=== PATIENT | female | born 2005 | race Caucasian/White ===

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

== ENCOUNTER 2025-04-18 13:45 | Outpatient (CLI) | payer BC, OTHER, SELFPAY ==
--- OUTSIDE RECORDS SUMMARY | 2025-04-21 13:47 | XMS_ITS | Data Portability ---
Author Organization [facility] [place] [facility] Address [address] [place] [address] Assessment Encounter Date Assessment Date Assessment LastModified by Organization Details LastModified Time 11/24/2023 11/24/2023 SURGERY DATE: 11/24/2023 PREOPERATIVE DIAGNOSIS: Biliary dyskinesia. POSTOPERATIVE DIAGNOSIS: Biliary dyskinesia. PROCEDURE: Laparoscopic cholecystectomy , TAP block. ESTIMATED BLOOD LOSS: Scant. FINDINGS: The gallbladder had normal biliary anatomy, was not inflamed. OPERATIVE NOTE: General anesthesia was induced. Abdomen was prepped and draped sterilely. Time-out done and antibiotics given. An 8 mm incision was made at the level of the umbilicus and Veress needle placed. Abdomen insufflated. Three 5 mm trocars placed in the subcostal position. TAP block done. The gallbladder was grasped and reflected cephalad. Peritoneal tissues were carefully freed off the cystic duct, cystic artery and neck of the gallbladder. Critical view obtained. Cystic duct and cystic artery controlled with clips and divided. The gallbladder was swept off the gallbladder fossa with hook cautery. This was placed in a plastic sac and removed from the abdomen. The right upper quadrant was thoroughly lavaged. The 0 Vicryl suture used to close the fascial defect, 4-0 Monocryl used to close the skin. Dermabond dressing applied. [email or web address] Not available 11/25/2023 03:21:33 Plan of Treatment Reminders Order Date Submit Date Provider Last Modified By Organization Details Last Modified Time Details Appointments None recorded. Lab None recorded. Referral None recorded. Procedures None recorded. Surgeries None recorded. Imaging NM, hepatobilia ry scan, w/ CCK 2023 024 [email or web address] [facility] [place], [address] [place], [address], 09:02:00 Medication Orders None recorded. Patient TargetsNo targets recorded. Patient Instructions Encounter Date Encounter Id Patient Instructions Last Modified By Organization Details Last Modified Time 10/20/2023 [id number] medical record request* [email or web address] Not available 10/24/2023 13:49:24 Patient was advised that the results of all diagnostic studies will be discussed in detail at the time of follow up. If results are urgent the results will be called to the patient. If follow-up appointment is missed it is the patients responsibility to reschedule. Patient is advised that if new or worsening symptoms occur they should call the clinic and or precede to the closest emergency room. [email or web address] Not available 10/19/2023 13:29:47 Reason for Referral None Reported. Results Created Date Observation Date Name Description Value Unit Range Abnormal Flag Note LastModifiedBy Organization Detail LastModifiedTime 09/27/19 24 09/27/2023 B12/F OLIC ACID PANEL folic acid 6.6 NG/mL 4.6-34 .8 normal Not Available [facility] [address] [place] [address], [address], 09/27/2023 14:20:38 09/27/19 24 09/27/2023 B12/F OLIC ACID PANEL vitamin B12 209 pg/mL 232-12 45 low Not Available [facility] [address] [place] [address], [address], 09/27/2023 14:20:38 09/27/19 24 09/27/2023 VITAM IN D 25-OH vitamin D 25-oh, total 30 NG/mL >=30 NG/mL normal Not Available [facility] [place], [address], 09/27/2023 14:20:40 09/27/19 24 09/27/2023 COMPL ETE BLOOD COUNT white blood cells 6.4 10*3/ uL 3.8-10 .8 normal Not Available [facility] [address] [place] [address], [address], 09/27/2023 14:31:22 09/27/19 24 09/27/2023 COMPL ETE BLOOD COUNT red blood cells 4.51 10*6/ uL 3.80-5 .20 normal Not Available [facility] [address] [place] [address], [address], 09/27/2023 14:31:22 09/27/19 24 09/27/2023 COMPL ETE BLOOD COUNT hemoglobin 13.6 g/dL 12.0-1 6.0 normal Not Available [facility] [address] [place] [address], [address], 09/27/2023 14:31:22 09/27/19 24 09/27/2023 COMPL ETE BLOOD COUNT hematocrit 41.4 % 35.0-4 7.0 normal Not Available [facility] [address] [place] [address], [address], 09/27/2023 14:31:22 09/27/19 24 09/27/2023 COMPL ETE BLOOD COUNT MCV 92 fL 80-100 normal Not Available [facility] [address] [place] [address], [address], 09/27/2023 14:31:22 09/27/19 24 09/27/2023 COMPL ETE BLOOD COUNT MCH 30 pg 26-35 normal Not Available [facility] [address] [place] [address], [address], 09/27/2023 14:31:22 09/27/19 24 09/27/2023 COMPL ETE BLOOD COUNT MCHC 33 g/dL 32-36 normal Not Available [facility] [address] [place] [address], [address], 09/27/2023 14:31:22 09/27/19 24 09/27/2023 COMPL ETE BLOOD COUNT RDW 12.9 % 11.0-1 5.0 normal Not Available [facility] [address] [place] [address], [address], 09/27/2023 14:31:22 09/27/19 24 09/27/2023 COMPL ETE BLOOD COUNT MPV 9.6 fL 6.2-10 .5 normal Not Available [facility] [address] [place] [address], [address], 09/27/2023 14:31:22 09/27/19 24 09/27/2023 COMPL ETE BLOOD COUNT platelet count 277 10*3/ uL 150-40 0 normal Not Available [facility] [address] [place] [address], [address], 09/27/2023 14:31:22 09/27/19 24 09/27/2023 COMPL ETE BLOOD COUNT neutrophil,a bsolute 3.0 10*3/ uL 1.6-8. 4 normal Not Available [facility] [address] [place] [address], [address], 09/27/2023 14:31:22 09/27/19 24 09/27/2023 COMPL ETE BLOOD COUNT lymphocyte,a bsolute 2.3 10*3/ uL 0.4-5. 1 normal Not Available [facility] [address] [place] [address], [address], 09/27/2023 14:31:22 09/27/19 24 09/27/2023 COMPL ETE BLOOD COUNT monocyte,abs olute 0.5 10*3/ uL 0.0-1. 2 normal Not Available [facility] [address] [place] [address], [address], 09/27/2023 14:31:22 09/27/19 24 09/27/2023 COMPL ETE BLOOD COUNT eosinophil,a bsolute 0.5 10*3/ uL 0.0-0. 8 normal Not Available [facility] [address] [place] [address], [address], 09/27/2023 14:31:22 09/27/19 24 09/27/2023 COMPL ETE BLOOD COUNT basophil,abs olute 0.1 10*3/ uL 0.0-0. 3 normal Not Available [facility] [address] [place] [address], [address], 09/27/2023 14:31:22 09/27/19 24 09/27/2023 COMPL ETE BLOOD COUNT % neutrophils 47.2 % 42.0-7 8.0 normal Not Available [facility] [address] [place] [address], [address], 09/27/2023 14:31:22 09/27/19 24 09/27/2023 COMPL ETE BLOOD COUNT % lymphocytes 36.3 % 11.0-4 7.0 normal Not Available [facility] [address] [place] [address], [address], 09/27/2023 14:31:22 09/27/19 24 09/27/2023 COMPL ETE BLOOD COUNT % monocytes 8.2 % 0.0-11 .0 normal Not Available [facility] [address] [place] [address], [address], 09/27/2023 14:31:22 09/27/19 24 09/27/2023 COMPL ETE BLOOD COUNT % eosinophils 7.4 % 0.0-7. 0 high Not Available [facility] [address] [place] [address], [address], 09/27/2023 14:31:22 09/27/19 24 09/27/2023 COMPL ETE BLOOD COUNT % basophils 0.9 % 0.0-3. 0 normal Not Available [facility] [address] [place] [address], [address], 09/27/2023 14:31:22 09/27/19 24 09/27/2023 COMPL ETE BLOOD COUNT nucleated red cells 0.0 % 0.0-0. 9 normal Not Available [facility] [address] [place] [address], [address], 09/27/2023 14:31:22 09/27/19 24 09/27/2023 COMPL ETE BLOOD COUNT nucleated RBCs, absolute 0.00 10*3/ uL not estab. normal Not Available [facility] [address] [place] [address], [address], 09/27/2023 14:31:22 09/27/19 24 09/27/2023 LIPAS E lipase 21 U/L 13-60 normal Not Available [facility] [address] [place] [address], [address], 09/27/2023 14:42:02 09/27/19 24 09/27/2023 MAYO C PANEL IgA 97 mg/dL 70-400 normal Not Available [facility] [address] [place] [address], [address], 09/29/2023 14:57:29 09/27/19 24 09/29/2023 MAYO C PANEL gliadin Ab IgA <1.0 U/mL normal Value Inter preta tion ----- ----- ----- ---- <15.0 Antib juarez not detec harrison > or = 15.0 Antib juarez detec harrison Not Available [facility] [address] [place] [address], [address], 09/29/2023 14:57:29 09/27/19 24 09/29/2023 MAYO C PANEL gliadin Ab IgG <1.0 U/mL normal Value Inter preta tion ----- ----- ----- ---- <15.0 Antib juarez not detec harrison > or = 15.0 Antib juarez detec harrison Not Available [facility] [address] [place] [address], [address], 09/29/2023 14:57:29 09/27/19 24 09/29/2023 MAYO C PANEL ttg, IgA <1.0 U/mL normal Value Inter preta tion ----- ----- ----- ---- <15.0 Antib juarez not detec harrison > or = 15.0 Antib juarez detec harrison Not Available [facility] [address] [place] [address], [address], 09/29/2023 14:57:29 09/27/19 24 09/29/2023 MAYO C PANEL endomysial Ab, IgA NEGATI VE negati ve normal Not Available [facility] [address] [place] [address], [address], 09/29/2023 14:57:29 09/27/19 24 09/27/2023 COMP. METAB OLIC PANEL glucose 93 mg/dL 74-100 normal Not Available [facility] [address] [place] [address], [address], 09/27/2023 14:42:06 09/27/19 24 09/27/2023 COMP. METAB OLIC PANEL blood urea nitrogen 11 mg/dL 6-20 normal Not Available [facility] [address] [place] [address], [address], 09/27/2023 14:42:06 09/27/19 24 09/27/2023 COMP. METAB OLIC PANEL creatinine 0.70 mg/dL 0.50-0 .95 normal Not Available [address], [address], 09/27/2023 14:42:06 09/27/19 24 09/27/2023 COMP. METAB OLIC PANEL BUN/creatini ne ratio 16 (calc ) 10-20 normal Not Available [facility] [address] [place] [address], [address], 09/27/2023 14:42:06 09/27/19 24 09/27/2023 COMP. METAB OLIC PANEL sodium 138 mmol/ L 136-14 5 normal Not Available [facility] [address] [place] [address], [address], 09/27/2023 14:42:06 09/27/19 24 09/27/2023 COMP. METAB OLIC PANEL potassium 3.5 mmol/ L 3.4-5. 0 normal Not Available [facility] [address] [place] [address], [address], 09/27/2023 14:42:06 09/27/19 24 09/27/2023 COMP. METAB OLIC PANEL chloride 103 mmol/ L 98-107 normal Not Available [facility] [address] [place] [address], [address], 09/27/2023 14:42:06 09/27/19 24 09/27/2023 COMP. METAB OLIC PANEL carbon dioxide 24 mmol/ L 22-31 normal Not Available [facility] [address] [place] [address], [address], 09/27/2023 14:42:06 09/27/19 24 09/27/2023 COMP. METAB OLIC PANEL anion gap 11 (calc ) 7-25 normal Not Available [facility] [address] [place] [address], [address], 09/27/2023 14:42:06 09/27/19 24 09/27/2023 COMP. METAB OLIC PANEL calcium 9.0 mg/dL 8.6-10 .2 normal Not Available [facility] [address] [place] [address], [address], 09/27/2023 14:42:06 09/27/19 24 09/27/2023 COMP. METAB OLIC PANEL total protein 7.3 g/dL 6.0-8. 0 normal Not Available [facility] [address] [place] [address], [address], 09/27/2023 14:42:06 09/27/19 24 09/27/2023 COMP. METAB OLIC PANEL albumin 4.5 g/dL 3.5-5. 2 normal Not Available [facility] [address] [place] [address], [address], 09/27/2023 14:42:06 09/27/19 24 09/27/2023 COMP. METAB OLIC PANEL globulin 2.8 1.5-4. 5 normal Not Available [facility] [address] [place] [address], [address], 09/27/2023 14:42:06 09/27/19 24 09/27/2023 COMP. METAB OLIC PANEL albumin/glob ulin ratio 1.6 (calc ) 1.1-2. 5 normal Not Available [facility] [address] [place] [address], [address], 09/27/2023 14:42:06 09/27/19 24 09/27/2023 COMP. METAB OLIC PANEL bilirubin, total 0.4 mg/dL 0.1-1. 2 normal Not Available [facility] [address] [place] [address], [address], 09/27/2023 14:42:06 09/27/19 24 09/27/2023 COMP. METAB OLIC PANEL alkaline phosphatase 88 U/L 30-121 normal Not Available [facility] [address] [place] [address], [address], 09/27/2023 14:42:06 09/27/19 24 09/27/2023 COMP. METAB OLIC PANEL AST 18 U/L 0-32 normal Not Available [facility] [address] [place] [address], [address], 09/27/2023 14:42:06 09/27/19 24 09/27/2023 COMP. METAB OLIC PANEL ALT 10 U/L 0-33 normal Not Available [facility] [address] [place] [address], [address], 09/27/2023 14:42:06 09/27/19 24 09/27/2023 COMP. METAB OLIC PANEL GFR 128 >= 60 normal NOT E New calcu latio n for GFR (CKD- EPI 2020) is formu lated witho ut race adjus tment facto rs at the recom menda tion of the Joelle Garcia y Found atyassine and Gautam Martino ty of Nephr ology . This calcu latio n has not been valid ated in pregn ant women . For pedia tric patie nts refer to https ://brian tamayo.o rg/pr ofess ional s/KDO QI/gf r_cal culat orPed Not Available [facility] [address] [place], [address], 09/27/2023 14:42:06 09/27/19 24 09/27/2023 AMYLA SE amylase 46 U/L 28-100 normal Not Available [facility] [address] [place], [address], 09/27/2023 14:42:08 09/27/19 24 09/27/2023 TSH TSH 3.490 u[IU] /mL 0.270- 4.200 normal Not Available [facility] [address] [place], [address], 09/27/2023 14:45:24 09/27/19 24 09/29/2023 UREA BREAT H TEST urea breath test NOT DETECT ED not detect ed normal Antim icrob ials, lionel n pump inhib itors , and bismu th prepa ratio ns are known to suppr ess H. pylor i, and inges tion of these prior to H. pylor i diagn ostic testi ng may lead to false negat norberto resul ts. If clini ashly indic ated, the test may be repea harrison on a new speci men obtai ce two weeks after disco ntinu ing treat ment. Hesham er, a posit norberto resul t is still clini ashly valid . Not Available [facility] [address] [place], [address], 09/29/2023 10:15:35 09/27/19 24 10/05/2023 INFLA MMATO RY BOWEL DISEA SE DIFFE RENTI ATION sacch.cerevi siae Ab,IgG <20.0 U normal Refer ence Range : <=20 NEGAT NORBERTO 20.1- 29.9 EQUIV OCAL >=30 POSIT NORBERTO Antib odies to Sacch aromy cecilio cerev isiae are found in appro ximat fannie 75% of patie nts with Crohn 's disea se, 15% of patie nts with ulcer ative colit is, and 5% of the healt hy popul ation . High antib juarez titer s incre ase the likel ihood of disea se, espec ially Crohn 's disea se, and are assoc iated with more aggre ssive disea se. As the infla mmati on in Crohn 's disea se is focus ed at the gut mucos a, most patie nts have IgA antib odies to S cerev isiae and half of these also have IgG antib odies . A minor ity of patie nts have only IgG antib odies to S cerev isiae . Not Available [facility] [address] [facility], [place], [address], 10/05/2023 22:24:26 09/27/19 24 10/05/2023 INFLA MMATO RY BOWEL DISEA SE DIFFE RENTI ATION sacch.cerevi siae Ab,IgA <20.0 U normal Refer ence Range : <=20. 0 NEGAT NORBERTO 20.1- 24.9 EQUIV OCAL >=25. 0 POSIT NORBERTO Antib odies to Sacch aromy cecilio cerev isiae are found in appro ximat fannie 75% of patie nts with Crohn 's disea se, 15% of patie nts with ulcer ative colit is, and 5% of the healt hy popul ation . High antib juarez titer s incre ase the likel ihood of disea se, espec ially Crohn 's disea se, and are assoc iated with more aggre ssive disea se. As the infla mmati on in Crohn 's disea se is focus ed at the gut mucos a, most patie nts have IgA antib odies to S cerev isiae and half of these also have IgG antib odies . A minor ity of patie nts have only IgG antib odies to S cerev isiae . Not Available [facility] [address] [place], [address], 10/05/2023 22:24:26 09/27/19 24 10/05/2023 INFLA MMATO RY BOWEL DISEA SE DIFFE RENTI ATION anca screen NEGATI VE negati ve normal ANCA Scree n inclu umesh evalu ation for p-ANC A, c-ANC A and atypi kt p-ANC A. A posit norberto ANCA scree n refle xes to john and leila rn(s) , e.g., cytoari dee rn (c-AN CA), logan dee rn (p-AN CA), or atypi kt p-ANC A leila rn. c-ANC A and p-ANC A are obser zoey in vascu litis , where as atypi kt p-ANC A is obser zoey in IBD (Infl ammat ory Bowel Disea se). Atypi kt p-ANC A is detec harrison in about 55% to 80% of patie nts with ulcer ative colit is but only 5% to 25% of patie nts with Crohn 's disea se. Not Available [facility] [address] [place], [address], 10/05/2023 22:24:26 09/27/19 24 10/05/2023 INFLA MMATO RY BOWEL DISEA SE DIFFE RENTI ATION proteinase-3 Ab <1.0 ai <1.0 normal <1.0 AI No Antib juarez Detec harrison > or = 1.0 AI Antib juarez Detec harrison Autoa ntibo dies to prote inase -3 (NE-3 ) are accep harrison as bree cteri stic for granu lomat osis with polya ngiit is (GPA, Wegen er's) , and are detec table in 95% of the histo logic ally prove n cases . The cytop quinn dee rn, (c-AN CA), is based large ly on autoa ntibo dy to NE-3 which serve s as the prima ry antig en. These autoa ntibo dies are prese nt in activ e disea se. Not Available [facility] [address] [place], [address], 10/05/2023 22:24:26 09/27/19 24 10/05/2023 INFLA MMATO RY BOWEL DISEA SE DIFFE RENTI ATION myeloperoxid ase Ab <1.0 ai <1.0 normal <1.0 AI No Antib juarez Detec harrison > or = 1.0 AI Antib juarez Detec harrison Autoa ntibo dies to myelo perox idase (MPO) are commo nly assoc iated with the follo wing small -vess el vascu litid es: micro scopi c polya ngiit is, polya rteri tis nodos a, Churg -Stra uss syndr ome, necro tizin g and cresc entic glome rulon ephri tis and occas ional ly granu lomat osis with polya ngiit is (GPA, Wegen er's) . The perin kwan dee rn, (p-AN CA) is based large ly on autoa ntibo dy to myelo perox idase which serve s as the prima ry antig en. These autoa ntibo dies are prese nt in activ e disea se. Not Available [facility] [address] [place], [address], 10/05/2023 22:24:26 11/24/19 24 11/24/2023 SURGI KT surgical SEE BELOW normal Depar tment of Patho logy Surgi kt Patho logy Repor t NAME: KATIELUDA MarquisTAIWOCE PATH. :ST-2 70 Copy to: Diagn osis: Junior morton r, radha cyste ctomy : Chron ic radha cysti tis. SOURC E OF SPECI MEN: JUNIOR MORTON R, & NURIS NTS CLINI KT INFOR MATIO N: K 82.8 BILIA RY DYSKI NESIA Gross Descr iptio n: Recei zoey in forma rahel label ed with the patie nt's name and desig nated as gall bladd er and nuris nts is a radha cyste ctomy speci men (4.5 x 2.5 x 2 cm) which has a pink- martínez, adam h to rough ened surfa ce. No lymph node is ident ified in the cysti c duct regio n. The speci men has been previ ously incis ed and no perfo ratio n is ident ified . The cysti c duct is paten t. The gallb ladde r lumen conta ins no radha liths . The mucos a is dark pinki sh-re d, witho ut radha stero losis . The wall of the gallb ladde r measu res up to 0.2 cm in thick ness. Repre senta tive secti ons are submi tted in a singl e casse tte. JAB 11/23 01:14 PM Micro scopi c Descr iptio n: A micro scopi c exami natio n has been perfo rmed and the resul t(s) are as noted above . AZIZA BROWN M.D. Juana d Out Date: 11/27 10:35 Page 1 of 1 Not Available [facility] [address] [place], [address], 11/28/2023 10:36:08 10/30/19 24 10/26/2023 NM, hepat obili robert scan, w/ CCK No observ ation record ed. vdewes [facility] [address], [place], [address], 10/31/2023 09:31:47 10/31/19 24 10/16/2023 emerg ency dept. visit * No observ ation record ed. [email or web address] Not Available 2023 17:21:03 Result Notes None recorded. Problems Name Problem SNOMED Code Status Onset Date Resolution Date Notes Provider Name and Address Organization Details Recorded Time Asthma 077080583 Active 2022 JASS HILTON NT, DO [address] [place], [address], [facility] 3 14:08:52 Mixed anxiety and depressive disorder 662036078 Active 2022 JASS CASTILLO, DO [address] [place], [address], [facility] 3 14:09:40 Headache 34380305 Active 2022 JASS HILTON NT, DO [address] [place], [address], [facility] 3 14:16:00 Allergic rhinitis 32554501 Active 2022 JASS CASTILLO, DO [address] [place], [address], [facility] 3 10:01:57 Fatigue 18053386 Active 2023 JASS CASTILLO, DO [address] [place], [address], [facility] 4 10:34:02 Right upper quadrant pain 386033629 Active 2023 JASS CASTILLO, DO [address] [place], [address], [facility] 4 15:41:30 Biliary dyskinesia 309114564 Active 2023 JASS CASTILLO, DO [address] [place], [address], [facility] 4 16:28:21 Cholecystitis 00998614 Active 2023 JASSKAREEM CASTILLO, DO [address] [place], [address], [facility] 4 16:28:38 Musculoskeleta l pain 630326147 Active 2023 JIGAR PATTON JR, MD [address] [place], [address], [facility] 4 17:13:56 Problem Notes Documentation Provider Name and Address Organization Details Recorded Time General Surgeon Consult Note : [facility] [address] [address]TOD[address], Grace I (id #[id number], : 2005) [facility] GENERAL SURGERY [address] [place] [address] Date: 4RE: Jamaica Rivas, : 2005, PT ID #[id number] Payne DO / [facility], [facility], I would like to thank you for referring Jamaica Rivas to our practice for consultation and evaluation. I have enclosed a copy of the office evaluation for your records. Sincerely, Electronically Signed by: JIGAR PATTON JR, MDEnccovenant medical center Reason/DateTransition of Care Encounter Patient complains of pain RUQ and nausea. 10/31/2023 - 10:40AM - GENERAL SURGERY SB History of Present Illness10/31/2023I am seeing Ms. Rivas consultation request of Jass Ferris DO for evaluation of right upper quadrant pain. 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 For several months she has had right sided stitch sensation. 3 weeks ago it became severe right upper quadrant pain on that was constant. The only thing that made it better was when she stopped eating fatty foods. She only eats rice and oatmeal now. It was accompanied by nausea. There is no radiation of pain. She denies any blood in her stool, vomiting, constipation. She denies history of jaundice pancreatitis. Taking dicyclomine and omeprazole did not improve the symptoms. She never had abdominal surgery. HIDA scan shows 0% ejection fractionShe states CT scan abdomen [facility] normalIBD serology, celiac panel, H. pylori, amylase, lipase, CBC and CMP were all normal.She denies history of chest painReview of Systems Patient reportschange in appetite, abdominal pain, and nauseabut reports not vomiting blood. She reportsfatigue. She reports no fever and no significant weight gain. She reports no vision change. She reports no frequent nosebleeds. She reports no chest pain, no shortness of breath when walking, and no palpitations. She reports no shortness of breath and no coughing up blood. She reports no difficulty urinating and no hematuria. She reports no jaundice and no rashes. She reports no loss of consciousness and no seizures. She reports no depression. She reports no swollen glands and no excessive bleeding. ROS as noted in the HPIPhysical ExamConstitutional:General Appearance: healthy-appearing and well-nourished. Level of Distress: NAD. Ambulation: ambulating normally. Psychiatric:Mental Status: normal mood and affect and active and alert. Head:Head: normocephalic and atraumatic. Eyes:Lids and Conjunctivae: non-injected. EOM: EOMI. Sclerae: non-icteric. ENMT:Hearing: no hearing loss. Neck:Neck: FROM and trachea midline. Lymph Nodes: no cervical LAD or supraclavicular LAD. Thyroid: no enlargement. Lungs:Auscultation: breath sounds normal and good air movement. Cardiovascular:Heart Auscultation: RRR and no murmurs. Abdomen:Inspection and Palpation: no tenderness or masses and soft and non-distended. Musculoskeletal::Motor Strength and Tone: normal and normal tone. Extremities: no edema. Neurologic:Gait and Station: normal gait and station. Coordination and Cerebellum: no tremor. Skin:Inspection and palpation: no rash or jaundice. Back:Thoracolumbar Appearance: normal curvature.Procedure DocumentationNone recordedAssessment/Plan1. Biliary uqbthsecdiH40.8: Other specified diseases of gallbladder 2. Right upper quadrant pain-90% chance that laparoscopic cholecystectomy will resolve her symptoms. I explained is possible to proceed with upper endoscopy before surgery but she does not want to do this. 3% chance of severe complication which would include bile duct injury. In 10 days she should be able to return to moderate activities. Use 5 mm rtcyuwkN56.11: Right upper quadrant pain Return to Office JIGAR PATTON JR, MD for ESC-LC 30 at SURGERY SCHEDULE on 11/10/2023 at 08:00 AM JASS PAYNE DO for RECHECK at [facility] on 11/17/2023 at 01:00 PM JIGAR PATTON JR, MD for HOSPITAL FOLLOW-UP at GENERAL SURGERY SB on 11/23/2023 at 10:40 AM JASS PAYNE DO [facility] [place], [address], [facility] 11/02/2023 08:08:30 General Surgeon Consult Note : [facility] [address] [facility] [id number], Grace I (id #[id number], : 2005) [facility] GENERAL SURGERY [address] [place] [address] Date: 4RE: [place] Rivas, : 2005, PT ID #[id number] Payne DO / [facility], I would like to thank you for referring Jamaica Rivas to our practice for consultation and evaluation. I have enclosed a copy of the office evaluation for your records. Sincerely, Electronically Signed by: JIGAR PATTON JR, MDEncounter Reason/DateNone recorded 12/07/2023 - 02:00PM - GENERAL SURGERY [facility] History of Present Illness10/31/2023I am seeing Ms. Rivas consultation request of Jass Ferris DO for evaluation of right upper quadrant pain. 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 For several months she has had right sided stitch sensation. 3 weeks ago it became severe right upper quadrant pain on that was constant. The only thing that made it better was when she stopped eating fatty foods. She only eats rice and oatmeal now. It was accompanied by nausea. There is no radiation of pain. She denies any blood in her stool, vomiting, constipation. She denies history of jaundice pancreatitis. Taking dicyclomine and omeprazole did not improve the symptoms.She never had abdominal surgery. HIDA scan shows 0% ejection fractionCT scan abdomen pelvis with contrast 10/16/2023 showed hepatomegaly, hepatic steatosis, no biliary dilatation, unremarkable gallbladder, punctate nonobstructing right kidney stone with 7 mm hypodense lesion at dome of the liver felt to be benignUltrasound gallbladder showed no gallstones, no wall thickening, no pericholecystic fluid and no biliary dilatationIBD serology, celiac panel, H. pylori, urinalysis, amylase, lipase, CBC and CMP were all normal.She denies history of chest pain 12/07/2023 She underwent laparoscopic cholecystectomy 11/24/2023. Pathology showed cholecystitis. She states her preoperative symptoms have completely resolved. She had minimal pain after the surgery. She has excellent healing. Follow-up as needed.Review of SystemsROS as noted in the HPIPhysical ExamNone recordedProcedure DocumentationNone recordedAssessment/PlanNone recorded Return to Office Patient will return to the office as needed JASS PAYNE, DO [address] [place], [address], [facility] 12/09/2023 12:04:35 Procedures Surgical History Date Name Laterality Status Provider Name and Address Organization Details Recorded Time tonsillectomy completed Meli Arnold [facility] 05/12/2023 14:06:14 Ear Tube completed Angelina [facility] 10/31/2023 13:11:25 Imaging Results None recorded. Procedure Notes None recorded. Medical Equipment None Reported. Allergies No known drug allergies Medications Name Sig Start Date Stop Date Status Note LastModified by Organization Details LastModified Time Singulair 10 mg tablet Daily 05/12 completed Frequenc y: daily;Me dication Descript ion: monteluk ast; Dosage:1 ; Route:or al; refills: 5; Quantity :30 tablet Not Available Not Available Not Available amoxicill in 500 mg capsule TAKE 1 CAPSULE BY MOUTH 2 TIMES DAILY FOR 10 DAYS 02/21 completed Not Available Not Available Not Available citalopra m 40 mg tablet TAKE 1 TABLET BY MOUTH EVERY DAY active Not Available Not Available No t Available azithromy sandhya 250 mg tablet TAKE 2 TABLETS BY MOUTH TODAY AND 1 TABLET BY MOUTH DAILY ON DAYS 2 THROUGH 5 09/27 completed Complete d Not Available Not Available Not Available hydrocodo ne 5 mg-acetam inophen 325 mg tablet TAKE ONE TABLET BY MOUTH EVERY 6 HOURS NEEDED MAY CAUSE DROWSINE SS 12/06 completed Not Available Not Available Not Available phenazopy ridine 200 mg tablet TAKE ONE TABLET BY MOUTH EVERY 8 HOURS FOR PAIN FOR 2 DAYS 02/21 completed Not Available Not Available Not Available prednison e 20 mg tablet TAKE 2 TABLETS BY MOUTH DAILY 06/07 completed Not Available Not Available Not Available sumatript an 50 mg tablet TAKE 1 TABLET BY MOUTH AT ONSET OF HEADACHE . MAY REPEAT IN 2 HOURS IF NEEDED. MAX 2 TABLETS EVERY 24 HOURS 09/27 completed Took x 2. Made headache s worse. Not Available Not Available Not Available sulfameth oxazole 800 mg-trimet hoprim 160 mg tablet TAKE 1 TABLET BY MOUTH 2 TIMES A DAY 06/07 completed Not Available Not Available Not Available omeprazol e 40 mg capsule,d elayed release TAKE ONE CAPSULE BY MOUTH EVERY DAY 10/31 completed Not Available Not Available Not Available amoxicill in 875 mg tablet TAKE 1 TABLET BY MOUTH 2 TIMES A DAY FOR 10 DAYS 02/21 completed Not Available Not Available Not Available famciclov ir 500 mg tablet TAKE ONE TABLET BY MOUTH THREE TIMES DAILY 05/12 completed Not Available Not Available Not Available dicyclomi ne 20 mg tablet TAKE 1 TABLET BY MOUTH 2 TIMES A DAY 12/06 completed Not Available Not Available Not Available ciproflox acin 0.3 % eye drops INSTILL 2 DROPS INTO THE AFFECTED EYE(S) EVERY 4 HOURS FOR 7 DAYS 05/12 completed Not Available Not Available Not Available cephalexi n 500 mg capsule TAKE 1 CAPSULE ORALLY FOUR TIMES A DAY FOR 10 DAYS 05/12 completed Not Available Not Available Not Available oseltamiv ir 75 mg capsule TAKE ONE CAPSULE BY MOUTH EVERY TWELVE HOURS -- FINISH ALL MEDICINE -- 12/06 completed Not Available Not Available Not Available budesonid e 0.5 mg/2 mL suspensio n for nebulizat ion INHALE THE CONTENTS OF 1 VIAL VIA NEBULIZE R TWICE DAILY DIRECTED 06/07 completed Not Available Not Available Not Available mupirocin 2 % topical ointment APPLY TOPICALL Y 3 TIMES A DAY 05/12 completed Not Available Not Available Not Available methylpre dnisolone 4 mg tablets in a dose pack TAKE ACCORDIN G TO PACKAGE INSTRUCT IONS --TAKE WITH FOOD-- -- FINISH ALL MEDICINE -- 10/24 completed Not Available Not Available Not Available brompheni ramine-ps eudoephed rine-DM 2 mg-30 mg-10 mg/5 mL oral syrup TAKE 1 TEASPOON FUL (5 ML) BY MOUTH EVERY 6 HOURS NEEDED FOR cough 01/30 /2024 completed Not Available Not Available Not Available ondansetr on 4 mg disintegr ating tablet DISSOLVE ONE TABLET BY MOUTH EVERY 8 HOURS NEEDED FOR NAUSEA AND VOMITING active Not Available Not Available No t Available fluticaso ne propionat e 50 mcg/actua tion nasal spray,marylou pension Daily 09/27 completed Duration : 30 days;Ins truction s: 2 sprays each nostril QD, angling the tip of the applicat ortoward s the top of the ear on the same side.;Fr equency: daily;Me dication Descript ion: fluticas one nasal; Dosage:1 -2 sprays; Route:na iraj; refills: 6; Quantity :1 spray Pt is not taking. Not Available Not Available Not Available escitalop phu 10 mg tablet TAKE ONE TABLET BY MOUTH EVERY DAY 05/12 completed Not Available Not Available Not Available cholestyr amine (with sugar) 4 gram powder for susp in a packet MIX AND DRINK 1 PACKET BY MOUTH EVERY DAY 02/21 completed Not Available Not Available Not Available escitalop phu 5 mg tablet TAKE ONE TABLET BY MOUTH EVERY DAY 05/12 completed Not Available Not Available Not Available Zyrtec 5 mg chewable tablet 09/27 completed Duration : 10 days;Med ication Descript ion: cetirizi ne; Route:or al; refills: 0; Quantity :30 Not Available Not Available Not Available nitrofura ntoin monohydra te/macroc rystals 100 mg capsule TAKE ONE CAPSULE BY MOUTH EVERY TWELVE HOURS FOR 5 DAYS -- FINISH ALL MEDICINE -- --TAKE WITH A MEAL/ELEAZAR D-- 02/21 completed Not Available Not Available Not Available duloxetin e 60 mg capsule,d elayed release TAKE ONE CAPSULE BY MOUTH EVERY DAY 05/12 completed Not Available Not Available Not Available cyanocoba eliazar (vitamin B-12) active Not Available Not Available Not Available Loestrin 10/14 (21) 1 tablet PO qd 05/17 completed Not Available Not Available Not Available Daysee 0.15 mg-30 mcg (84)/10 mcg(7) tablets,3 month dose pack Take 1 tablet every day by oral route. 05/17 completed Not Available Not Available Not Available Kristine 1/20 (21) 1 mg-20 mcg tablet TAKE ONE TABLET BY MOUTH EVERY DAY active Not Available Not Available No t Available BinaxNOW COVID-19 Ag Self Test kit TEST DIRECTED TODAY 05/12 completed Not Available Not Available Not Available Vitals Date Recorded Body height Body mass index (BMI) Body mass index (BMI) [Percentile] Per age and sex Body weight Body temperature Heart rate Oxygen saturation Oxygen saturation in Arterial blood by Pulse oximetry Systolic And Diastolic Provider Name and Address Organization Details Last Updated DateTime 4 167.64 cm 21.8 kg/m2 55 % 36941.9 7 g 97.5 [degF] 90 /min 99 % 99 % 115/78 mm[Hg] JASS HILTON , DO [facility] [place], [address] [place] [address] 4 10:57:16 Date Recorded Body height Body mass index (BMI) Body mass index (BMI) [Percentile] Per age and sex Body weight Heart rate Body temperature Systolic And Diastolic Provider Name and Address Organization Details Last Updated DateTime 4 167.64 cm 21.5 kg/m2 51 % 52943.7 9 g 96 /min 97.9 [degF] 112/84 mm[Hg] [facility] 4 11:06:01 Date Recorded Body height Body mass index (BMI) Body mass index (BMI) [Percentile] Per age and sex Body weight Heart rate Systolic And Diastolic Provider Name and Address Organization Details Last Updated DateTime 4 167.64 cm 20.8 kg/m2 42 % 53152.4 2 g 83 /min 123/82 mm[Hg] [facility] 4 14:21:50 Date Recorded Body height Body mass index (BMI) Body mass index (BMI) [Percentile] Per age and sex Body weight Heart rate Systolic And Diastolic Provider Name and Address Organization Details Last Updated DateTime 4 167.64 cm 21.1 kg/m2 45 % 48140.6 g 78 /min 121/79 mm[Hg] [facility] 4 09:05:26 Social History Question Answer Notes LastModified by Organizat ion Details LastModified Time Tobacco Smoking Status Never Smoker Meli Arnold [facility] 05/12/2023 14:05:18 What Is The Highest Grade Or Level Of School You Have Completed Or The Highest Degree You Have Received? [id number] [email or web address] Information not available 05/12/2023 What Was The Date Of Your Most Recent Tobacco Screening? 09/27/2023 [email or web address] Information not available 09/27/2023 Has Tobacco Cessation Counseling Been Provided? No [email or web address] Information not available 05/12/2023 Sex: Female Functional Status Question Answer Note LastModified by Organizat ion Details LastModified Time Do you use any illicit or recreational drugs? No [email or web address] Information not available 05/12/2023 Do you or have you ever used any other forms of tobacco or nicotine? No [email or web address] Information not available 05/12/2023 What is your level of alcohol consumption? None [email or web address] Information not available 05/12/2023 Are you currently employed? 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 Family History Relationship Description Onset Age of this Age Resolved Age Notes LastModified by Organization Details LastModified Time Father No current problems or disability [email or web address] Not available 10:03:03 Mother No current problems or disability [email or web address] Not available 10:03:03 Unspecified Relation Asthma [email or web address] Not available 13:09:46 Unspecified Relation Diabetes mellitus [email or web address] Not available 2023 13:10:09 Unspecified Relation Heart disease [email or web address] Not available 2023 13:10:22 Medical History Condition Response Coronary Artery Disease N COPD N Stroke N Crohn's Disease N Kidney Disease N Asthma Y Thyroid Disease N Liver Disease N Colon Polyps N Heart Attack ([place]) N Diabetes N Congestive Heart Failure (CHF) N Diverticulitis N Heart Disease N Hypertension N Gynecological History Statement/Question Response Abnormal Pap N Regular Cycles Y Flow Moderate Date of LMP 06/06/2023 Sexually Active? Y STIs/STDs N Current Control Method BCPs LMP Definite Obstetrics History GPAL:G 0 P 0 0 0 0 Immunizations Vaccine Type Date Status Note Provider Nam e and Address Organization Details Recorded Time IPV 9 completed JASS PAYNE, DO [address] [place] [address], [address], [facility] 05/15/2023 10:02:15 meningococcal ACWY, unspecified formulation 6 completed JASS PAYNE, DO [address] [place] [address], [address] [place] [address], [facility] 05/15/2023 10:02:15 MMR 9 completed JASS PAYNE, [address] [place] [address], [address] [place] [address], [facility] 05/15/2023 10:02:15 MMR 6 completed JASS PAYNE, [address] [place] [address], [address], [facility] 05/15/2023 10:02:15 COVID-19, mRNA, LNP-S, PF, 30 mcg/0.3 mL dose 1 completed JASS PAYNE, [address] [place] [address], [address], [facility] 05/15/2023 10:02:15 COVID-19, mRNA, LNP-S, PF, 30 mcg/0.3 mL dose 1 completed JASS PAYNE DO [address] [place] [address], [address], [facility] 05/15/2023 10:02:15 COVID-19, mRNA, LNP-S, PF, 30 mcg/0.3 mL dose 1 completed JASS PAYNE, [address] [place] [address], [address], [facility] 05/15/2023 10:02:15 COVID-19, mRNA, LNP-S, bivalent, PF, 50 mcg/0.5 mL or 25mcg/0.25 mL dose 2 completed JASS PAYNE, DO [address] [place], [address], [facility] 05/15/2023 10:02:15 Tdap 6 completed JASS PAYNE, DO [address] [place], [address], [facility] 05/15/2023 10:02:15 varicella 6 completed JASS PAYNE, DO [address] [place], [address], [facility] 05/15/2023 10:02:15 varicella 9 completed JASS PAYNE, DO [address] [place], [address], [facility] 05/15/2023 10:02:15 HPV, unspecified formulation 6 completed JASS PAYNE, DO [address] [place], [address], [facility] 05/15/2023 10:02:15 pneumococcal, unspecified formulation 6 completed JASS PAYNE, DO [address] [place], [address], [facility] 05/15/2023 10:02:15 pneumococcal, unspecified formulation 0 completed JASS PAYNE, DO [address] [place], [address], [facility] 05/15/2023 10:02:15 pneumococcal, unspecified formulation 6 completed JASS PAYNE, DO [address] [place], [address], [facility] 05/15/2023 10:02:15 pneumococcal, unspecified formulation 5 completed JASS PAYNE, DO [address] [place], [address], [facility] 05/15/2023 10:02:15 pneumococcal, unspecified formulation 5 completed JASS PAYNE, DO [address] [place], [address], [facility] 05/15/2023 10:02:15 Hep B, adolescent or pediatric 5 completed JASS PAYNE, DO [address] [place], [address], [facility] 05/15/2023 10:02:15 Hib (PRP-OMP) 5 completed JASS PAYNE, DO [address] [place], [address], [facility] 05/15/2023 10:02:15 Hib (PRP-OMP) 6 completed JASS PAYNE, DO [address] [place], [address], [facility] 05/15/2023 10:02:15 Hib (PRP-OMP) 5 completed JASS PAYNE, DO [address] [place], [address], [facility] 05/15/2023 10:02:15 meningococcal MCV4P 3 completed JASS PAYNE, DO [address] [place], [address], [facility] 05/15/2023 10:02:15 meningococcal MCV4P 3 completed JASS PAYNE, DO [address] [place], [address], [facility] 05/15/2023 10:02:15 DTaP 7 completed JASS PAYNE, DO [address] [place], [address], [facility] 05/15/2023 10:02:15 DTaP 9 completed JASS PAYNE, DO [address] [place], [address], [facility] 05/15/2023 10:02:15 DTaP-Hep B-IPV 6 completed JASS PAYNE, DO [address] [place], [address], [facility] 05/15/2023 10:02:15 DTaP-Hep B-IPV 5 completed JASS PAYNE, DO [address] [place], [address], [facility] 05/15/2023 10:02:15 DTaP-Hep B-IPV 5 completed JASS PAYNE, DO [address] [place], [address], [facility] 05/15/2023 10:02:15 Influenza, split virus, quadrivalent, PF 2 completed JASS PAYNE, DO [address] [place], [address], [facility] 05/15/2023 10:02:15 Hep A, unspecified formulation 7 completed JASS PAYNE, DO [address] [place], [address], [facility] 05/15/2023 10:02:15 Hep A, unspecified formulation 6 completed JASS PAYNE, DO [address] [place], [address], [facility] 05/15/2023 10:02:15 COVID-19, mRNA, LNP-S, PF, 50 mcg/0.5 mL 3 completed Alona perales, [facility] 09/27/2023 10:15:53 Influenza, split virus, quadrivalent, PF 3 completed Alona Espinoig null, [facility] 09/27/2023 10:15:53 Past Encounters Encounter ID Performer Location Encounter Start Date Encounter Closed Date Diagnosis/Indication Diagnosis SNOMED-CT Code Diagnosis ICD10 Code Diagnosis Note [id number] JASS Beal, DO [facility] [address] [place] [address] 05/12/2023 13:52:17 05/12/2023 14:22:35 Mixed anxiety and depressive disorder 466115394 F41.8 Continue with current medication Headache 91019575 R51.9 Discussed recent changes in HACheck CTRecommen d restart ZYrtec for possible sinus involvemen tMay use Imitrex prnIf NORIEGA continues several times per week consider start of prophylaxi s. Contracept ion care management 382555076 Z30.9 Continue with current medication Recommend PAP starting at age 21. [id number] JASS DIAMANTE Beal, DO [facility] [address] [place] [address] 06/07/2023 15:47:46 06/07/2023 16:15:22 Bite of insect 184584444 W57.XXXA The areas do not appear infected and are asymptomat ic, however she voices concern for staph, check Cx & S, recommend cover the areas and no further scratching . Recommend DEET containing bug spray to prevent further bites. [id number] JASS Beal, DO [facility] [address] [place] [address] 09/27/2023 10:03:09 09/27/2023 11:06:34 Mixed anxiety and depressive disorder 926073502 F41.8 Continue with current medication Headache 98661812 R51.9 improved Contracept ion care management 170671811 Z30.9 Continue with current medication Recommend PAP starting at age 21. Abdominal pain 84971068 R10.9 Start Omeprazole for 6 weeksCheck LabsIf no improvemen t check US Fatigue 32157933 R53.83 Check labs [id number] JASS DIAMANTE Beal, DO [facility] [address] [place] [address] 10/20/2023 13:39:59 10/25/2023 05:14:21 Abdominal pain 01136238 R10.9 check HIDAReques t workup from [facility].She has an appointmen t with a GI specialist in [place] on 11/16/2023 [id number] JIGAR PATTON JR, MD GENERAL SURGERY [address] [address] 10/31/2023 10:40:43 11/02/2023 13:14:53 Biliary dyskinesia 494130176 K82.8 Right uppe r quadrant pain 203396577 R10.11 90% chance that laparoscop ic cholecyste ctomy will resolve her symptoms. I explained is possible to proceed with upper endoscopy before surgery but she does not want to do this. 3% chance of severe complicati on which would include bile duct injury. In 10 days she should be able to return to moderate activities . Use 5 mm trocars [id number] JIGAR PATTON JR, MD SURGERY SCHEDULE [address] [place] [address] 11/24/2023 07:58:35 11/24/2023 07:59:30 [id number] JIGAR PATTON JR, MD GENERAL SURGERY [address] [address] 12/07/2023 14:01:09 12/11/2023 10:09:57 [id number] JIGAR PATTON JR, MD GENERAL SURGERY [address] [address] 02/22/2024 08:58:10 02/23/2024 15:29:50 Musculoskeletal pain [id number] M79.10 Right upper quadrant soreness with sitting up from supine position and with physical activity. I think this is musculoske letal in etiology. I told her if it increases in severity or if she has other new symptoms to let me know. I will call in 3 months to see how she is doing. No indication for further evaluation now. Health Concerns Section Related Observation LastModified by Organization Detai ls LastModified Time None Recorded Concern Status LastModified by Organization Details LastModified Time None Recorded Advance Directives Directive None Recorded Payers Insurance Date Sequence Insurance Name Policy Number Policy Aguirre Covered Member ID Aguirre Member ID Guarantor Name 02/21/2024 1 [place] [id number] Norma Rivas [id number] [place] Rivas OBGyn Episode No OBEpisode recorded.
--- OUTSIDE RECORDS SUMMARY | 2025-04-21 13:48 | XMS_ITS | Clinical Summary ---
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 Name Role Phone Unavailable Primary Care Provider Unavailabl e Allergies No known active allergies Medications No known medications Social History Tobacco Use Types Packs/Day Years Used Date Smoking Tobacco: Never Assessed Comments Unknown Sex and Gender Information Value Date Recorded Sex Assigned at Not on file Legal Sex Female 9:29 PM EDT Gender Identity Not on file Sexual Orientation Not on file Last Filed Vital Signs Vital Sign Reading Time Taken Comments Blood Pressure 118/58 03/20/2017 8:00 AM EDT Pulse 75 03/20/2017 8:00 AM EDT Temperature - - Respiratory Rate - - Oxygen Saturation - - Inhaled Oxygen Concentration - - Weight - - Height - - Body Mass Index - - Plan of Treatment Health Maintenance Due Date Last Done Comments Dental Oral Exam 2005 Dental Prophylaxis 2005 Dental X-Ray: Bitewings 2005 Dental X-Ray: Full Mouth 2005 [facility]-Depression Screening 2005 [facility]-HIV Screening 2005 [facility]-Hepatitis C Screening 2005 [facility]-/Child/Adol SDOH Screenings 2005 Fluoride Varnish 01/03/2006 [facility]-DTaP,Tdap,and Td Vaccines (6 - Tdap) 2016 05/19/2009, 11/06/2006, 2005, Additional history exists HPV Vaccines (1 - 3-dose series) 2020 [facility]- SDOH Screenings 2023 [facility]-Adult SDOH Screenings 2023 [id number] Vaccine ( season) 2024 08/15/2022, 09/12/2021, 03/01/2021, Additional history exists [facility]-Influenza Vaccine (#1) 2025 08/15/2022 [facility]-Zoster Vaccines (1 of 2) 2055 05/19/2009, 05/10/2006 [facility]-Hepatitis B Vaccines Completed 006, 2005, 2005, Additional history exists [facility]-HIB Vaccines Completed 08/07/2006, , 2005 [facility]-IPV Vaccines Completed 05/19/2009, , 2005, Additional history exists [facility]-Varicella Vaccines Completed 05/19/2009, 2005 [facility]-Hepatitis A Vaccines Aged Out No longer eligible based on patient's age to complete this topic [facility]-Pneumococcal Vaccine: Pediatrics (0 to 5 Years) and At-Risk Patients (6 to 49 Years) Aged Out No longer eligible based on patient's age to complete this topic [facility]-Rotavirus Vaccines Aged Out No lo nger eligible based on patient's age to complete this topic
--- OUTSIDE RECORDS SUMMARY | 2025-04-21 13:48 | XMS_ITS | Data Portability ---
[facility] Address [address] [place] [address] Care Team Providers Care Information Technology Teacher Name Role Phone MOHSEN RAWLS Primary Care Provider [phone] Assessment No assessment recorded. Plan of Treatment Reminders Order Date Submit Date Provider Last Modified By Organization Details Last Modified Time Details Appointments OV PHY 30 2024 02:30P M Mohsen Rawls MD Not available Not available Not available Lab None recorded. Referral None recorded. Procedures None recorded. Surgeries None recorded. Imaging None recorded. Medication Orders cholestyr amine (with sugar) 4 gram powder for susp in a packet 2023 024 [id number], [address], [place], [id number], 01/19/2024 09:09:21 Patient TargetsNo targets recorded. Patient InstructionsNo instructions recorded. Reason for Referral None Reported. Problems Name Problem SNOMED Code Status Onset Date Resolution Date Notes Provider Name and Address Organization Details Recorded Time Generalized anxiety disorder 17520163 Active 2023 Mohsen Rawls MD [address], [address], [place], [address], [facility] [place] 08:53:59 Uses oral contraception 2686480 Active 2023 Mohsen Rawls MD [address], [address], [place], [address], [place] [facility] & [place] 08:54:12 Asthma 181760567 Active 2023 Mohsen Rawls MD [address], [address], [place], [address], [facility] & [place] 4 08:57:56 Cobalamin deficiency 156538851 Active 2023 Mohsen Rawls MD [address], [address], [place], [address], [facility] & [place] 09:08:35 Problem Notes None recorded. Medical Equipment None Reported. Allergies No known drug allergies Medications Name Sig Start Date Stop Date Status Note LastModified by Organization Details LastModified Time amoxicillin 500 mg capsule TAKE 1 CAPSULE BY MOUTH 2 TIMES DAILY FOR 10 DAYS 01/17 completed Not Available Not Available Not Available fluconazole 100 mg tablet TAKE 1 TABLET BY MOUTH A SINGLE DOSE. REPEAT IN 3 DAYS NEEDED active Not Available Not Available No t Available citalopram 40 mg tablet TAKE ONE TABLET BY MOUTH EVERY DAY active Not Available Not Available No t Available azithromyci n 250 mg tablet TAKE 2 TABLETS BY MOUTH TODAY AND 1 TABLET BY MOUTH DAILY ON DAYS 2 THROUGH 5 04/20 completed Not Available Not Available Not Available hydrocodone 5 mg-acetamin ophen 325 mg tablet TAKE ONE TABLET BY MOUTH EVERY 6 HOURS NEEDED MAY CAUSE DROWSINES S 01/18 completed Not Available Not Available Not Available phenazopyri dine 200 mg tablet TAKE ONE TABLET BY MOUTH EVERY 8 HOURS FOR PAIN FOR 2 DAYS active Not Available Not Available No t Available prednisone 20 mg tablet TAKE 2 TABLETS BY MOUTH DAILY 01/17 completed Not Available Not Available Not Available sumatriptan 50 mg tablet TAKE 1 TABLET BY MOUTH AT ONSET OF HEADACHE. MAY REPEAT IN 2 HOURS IF NEEDED. MAX 2 TABLETS EVERY 24 HOURS 01/18 completed Not Available Not Available Not Available pseudoephed rine ER 120 mg tablet,exte nded release TAKE 1 TABLET BY MOUTH EVERY 12 HOURS NEEDED FOR NASAL CONGESTIO N active Not Available Not Available No t Available ciprofloxac in 500 mg tablet TAKE 1 TABLET BY MOUTH TWICE DAILY FOR 5 DAYS active Not Available Not Available No t Available sulfamethox azole 800 mg-trimetho prim 160 mg tablet TAKE 1 TABLET BY MOUTH 2 TIMES A DAY 01/17 completed Not Available Not Available Not Available omeprazole 40 mg capsule,del ayed release TAKE ONE CAPSULE BY MOUTH EVERY DAY 01/18 completed Not Available Not Available Not Available amoxicillin 875 mg tablet TAKE 1 TABLET BY MOUTH 2 TIMES A DAY FOR 10 DAYS 01/18 completed Not Available Not Available Not Available dicyclomine 20 mg tablet TAKE 1 TABLET BY MOUTH 2 TIMES A DAY 01/18 completed Not Available Not Available Not Available ciprofloxac in 0.3 % eye drops INSTILL 2 DROPS INTO THE AFFECTED EYE(S) EVERY 4 HOURS FOR 7 DAYS 01/17 completed Not Available Not Available Not Available cephalexin 500 mg capsule TAKE 1 CAPSULE ORALLY FOUR TIMES A DAY FOR 10 DAYS 01/17 completed Not Available Not Available Not Available oseltamivir 75 mg capsule TAKE 1 CAPSULE BY MOUTH EVERY 12 HOURS FOR 5 DAYS active Not Available Not Available No t Available mupirocin 2 % topical ointment APPLY TOPICALLY 3 TIMES A DAY 01/18 completed Not Available Not Available Not Available norethindro ne acetate 1 mg-ethinyl estradiol 20 mcg tablet TAKE ONE TABLET BY MOUTH EVERY DAY 2024 active Not Available Not Available Not Avai lable methylpredn isolone 4 mg tablets in a dose pack FOLLOW PACKAGE DIRECTION S active Not Available Not Available No t Available bromphenira mine-pseudo ephedrine-D M 2 mg-30 mg-10 mg/5 mL oral syrup TAKE 5 ML BY MOUTH EVERY 6 HOURS NEEDED FOR COUGH active Not Available Not Available No t Available ondansetron 4 mg disintegrat ing tablet DISSOLVE ONE TABLET BY MOUTH EVERY 8 HOURS NEEDED FOR NAUSEA AND VOMITING 01/18 completed Not Available Not Available Not Available cefdinir 300 mg capsule TAKE 1 CAPSULE BY MOUTH EVERY 12 HOURS FOR 10 DAYS 04/20 completed Not Available Not Available Not Available azithromyci n 500 mg tablet TAKE 2 TABLETS BY MOUTH TODAY THEN TAKE 1 TABLET BY MOUTH EVERY DAY FOR 2 DAYS active Not Available Not Available No t Available cholestyram ine (with sugar) 4 gram powder for susp in a packet MIX AND DRINK 1 PACKET BY MOUTH EVERY DAY active Not Available Not Available No t Available nitrofurant oin monohydrate /macrocryst als 100 mg capsule TAKE 1 CAPSULE BY MOUTH TWICE DAILY active Not Available Not Available No t Available duloxetine 60 mg capsule,del ayed release TAKE ONE CAPSULE BY MOUTH EVERY DAY 01/18 completed Not Available Not Available Not Available Daysee 0.15 mg-30 mcg (84)/10 mcg(7) tablets,3 month dose pack TAKE 1 TABLET BY MOUTH DAILY 01/18 completed Not Available Not Available Not Available Vitals Date Recorded Body height Body mass index (BMI) [Percentile] Per age and sex Body mass index (BMI) Body weight Body temperature Oxygen saturation Oxygen saturation in Arterial blood by Pulse oximetry Heart rate Systolic And Diastolic Provider Name and Address Organization Details Last Updated DateTime 4 167.64 cm 43 % 20.9 kg/m2 88551.2 2 g 97.8 [degF] 96 % 96 % 76 /min 120/68 mm[Hg] Nevaeh Pimentel [facility] [place] 08:50:28 Social History None recorded. Functional Status Question Answer Note LastModified by Organization D etails LastModified Time What is your level of alcohol consumption? None [email or web address] Information not available 01/19/2024 Mental Status None recorded. Family History Nothing Reported. Medical History No medical history recorded. Gynecological HistoryNo gynecological history recorded. Obstetrics History GPAL:G 0 P 0 0 0 0 Immunizations Vaccine Type Date Status Note Provider Nam e and Address Organization Details Recorded Time DTaP, unspecified formulation 05/19/2009 completed Haritha Stuettgen null, [place] [facility] [place] 03/27/2025 14:29:04 DTaP, unspecified formulation 10/06/2006 completed Haritha Stuettgen null, [place] [facility] [place] 03/27/2025 14:29:08 DTaP, unspecified formulation 2005 completed Haritha Stuettgen null, [place] [facility] [place] 03/27/2025 14:29:15 SARS-COV-2 (COVID-19) vaccine, UNSPECIFIED 08/15/2022 completed Haritha Stuettgen null, [place] [facility] [place] 03/27/2025 14:29:27 SARS-COV-2 (COVID-19) vaccine, UNSPECIFIED 09/12/2021 completed Harithamerle Calderon diaz, [place] - [facility] [place] [facility] [place] 03/27/2025 14:29:31 Past Encounters Encounter ID Performer Location Encounter Start Date Encounter Closed Date Diagnosis/Indication Diagnosis SNOMED-CT Code Diagnosis ICD10 Code Diagnosis Note [id number] Mohsen Rawls MD [facility]- Dept [address] [facility] [place] [id number] 01/19/2024 08:42:19 01/19/2024 10:42:35 Diarrhea 11863910 R19.7 Happened more so after GB removal. Will try cholestyra mine daily to see if this helps. Asthma 023455659 J45.90 9 Does have an albuterol inhaler to use, but very rarely needs albuterol. Generalize d anxiety disorder 55462097 F41.1 Doing well with celexa. Uses oral contraception 5748732 Z79.3 Plan for upcoming first PAP/Pelvic exam. Cobalamin deficiency 190 826427 E53.8 Will continue with B12 supplement s. Health Concerns Section Related Observation LastModified by Organization Detai ls LastModified Time None Recorded Concern Status LastModified by Organization Details LastModified Time None Recorded Advance Directives Directive None Recorded Payers Insurance Date Sequence Insurance Name Policy Number Policy Aguirre Covered Member ID Aguirre Member ID Guarantor Name 04/20/2025 1 [employer] [id number] [place] R[place] [id number] [place] Rivas OBGyn Episode No OBEpisode recorded.
== END 2025-04-18 23:59 | disposition home or self-care (01) ==
LOC: LAB.DROPOF 04-21 13:45
PROVIDERS: PCP Internal Medicine; Visit Provider Student in an Organized Health Care Education/Training Program
DX: R09.81 Nasal congestion (principal); Z20.822 Contact with and (suspected) exposure to COVID-19
CPT/HCPCS: 87635